=== PATIENT | female | born 1950 | race Caucasian/White ===

== ENCOUNTER 2018-07-26 16:11 | Outpatient (REF) | payer OTHER, SELFPAY ==
[2018-07-26 16:56] LABS: HCT 44.7 % (36.0-46.0); HGB 14.9 g/dL (12.0-15.5); Mean Corp. HGB Concentration 33.3 g/dL (32.0-36.0); Mean Corpuscular Hemoglobin 30.5 pg (27.0-33.0); Mean Corpuscular Volume 91.6 fL (80-95); Mean Platelet Volume 11.7 fL (8.0-11.0); Platelet Count 193 x1000/uL (130-400); RBC 4.88 m/cumm (4.00-5.20); RBC Distribution Width 13.4 % (11.7-14.6); White Blood Cell Count 6.82 k/cumm (4.4-10.8)
[2018-07-26 17:32] LABS: Anion Gap 9.6 mmol/L (3-11); BUN 19 mg/dL (7-18); CO2 27.4 mmol/L (21.0-32.0); CREATININE 0.64 mg/dL (0.55-1.02); Calcium 8.9 mg/dL (8.5-10.1); Chloride 107 mmol/L (98-107); Glucose 95 mg/dL (70-100); Potassium 4.3 mmol/L (3.5-5.1); Sodium 144 mmol/L (136-145); TSH (W/Ref FT4) 1.44 uIU/mL (0.358-3.74)
== END 2018-07-26 16:31 ==
LOC: NCHCN 16:11
PROVIDERS: PCP Family Medicine; Visit Provider Family Medicine
DX: I10 Essential (primary) hypertension (principal)
CPT/HCPCS: 80048; 85027; 84443

== ENCOUNTER 2018-08-09 10:18 | Outpatient (REF) | payer OTHER, SELFPAY ==
[2018-08-09 13:05] LABS: Anion Gap 6.8 mmol/L (3-11); BUN 17 mg/dL (7-18); CO2 29.2 mmol/L (21.0-32.0); CREATININE 0.73 mg/dL (0.55-1.02); Calcium 9.2 mg/dL (8.5-10.1); Chloride 105 mmol/L (98-107); Glucose 80 mg/dL (70-100); Potassium 4.2 mmol/L (3.5-5.1); Sodium 141 mmol/L (136-145)
== END 2018-08-09 10:38 ==
LOC: NCHCN 10:18
PROVIDERS: PCP Family Medicine; Visit Provider Family Medicine
DX: I10 Essential (primary) hypertension (principal)
CPT/HCPCS: 80048

== ENCOUNTER 2018-08-23 10:57 | Outpatient (REF) | payer OTHER, SELFPAY ==
[2018-08-23 12:33] LABS: BUN 25 mg/dL (7-18); CREATININE 0.86 mg/dL (0.55-1.02); Calcium 9.5 mg/dL (8.5-10.1); Chloride 103 mmol/L (98-107); Glucose 100 mg/dL (70-100); Sodium 143 mmol/L (136-145)
== END 2018-08-23 11:17 ==
LOC: NCHCN 10:57
PROVIDERS: PCP Family Medicine; Visit Provider Family Medicine
DX: I10 Essential (primary) hypertension (principal)
CPT/HCPCS: 80048

== ENCOUNTER 2021-05-11 10:47 | Outpatient (REF) | payer OTHER, SELFPAY ==
[2021-05-11 15:09] LABS: HCT 40.7 % (36.0-46.0); HGB 13.5 g/dL (11.2-15.7); MCH 30.3 pg (27.0-33.0); MCHC 33.2 % (32.0-36.0); MCV 91.3 fL (80-95); Platelet Count 190 10^3/uL (130-400); RBC 4.46 10^6/uL (3.93-5.22); RDW 12.6 % (11.7-14.6); RDW-SD 42.5 fL; WBC 5.19 10^3/uL (4.4-10.8)
[2021-05-11 15:35] LABS: Anion Gap 8.4 mmol/L (3-11); BUN 23 mg/dL (7-18); CO2 28.6 mmol/L (21.0-32.0); CREATININE 0.9 mg/dL (0.55-1.02); Calcium 9.3 mg/dL (8.5-10.1); Calculated LDL 173 mg/dL (<100); Chloride 103 mmol/L (98-107); Cholesterol 252 mg/dL (<200); Glucose 95 mg/dL (74-106); HDL Cholesterol 60 mg/dL (40-60); Potassium 3.7 mmol/L (3.5-5.1); Sodium 140 mmol/L (136-145); TSH (W/Ref FT4) 1.55 uIU/mL (0.36-3.74); Triglyceride 98 mg/dL (<150)
[2021-05-11 16:17] LABS: Hemoglobin A1C 5.2 % (<5.7)
[2021-05-13 11:43] LABS: Hepatitis C Ab w Rflx HCV PCR Negative (Negative)
== END 2021-05-11 10:48 | disposition home or self-care (01) ==
LOC: NCHCN 10:47
PROVIDERS: PCP Family Medicine; Visit Provider Family Medicine
DX: I10 Essential (primary) hypertension (principal); R73.9 Hyperglycemia, unspecified; R63.4 Abnormal weight loss; I89.0 Lymphedema, not elsewhere classified; Z00.00 Encounter for general adult medical examination without abnormal findings; Z79.1 Long term (current) use of non-steroidal anti-inflammatories (NSAID)
CPT/HCPCS: 80048; 80061; 85027; 86803; 83036; 84443

== ENCOUNTER 2021-06-02 12:39 | Outpatient (REF) | payer OTHER, SELFPAY ==
[2021-06-02 15:02] LABS: Calculated LDL 178 mg/dL (<100); Cholesterol 254 mg/dL (<200); HDL Cholesterol 58 mg/dL (40-60); Triglyceride 90 mg/dL (<150)
== END 2021-06-02 12:40 | disposition home or self-care (01) ==
LOC: NCHCN 12:39
PROVIDERS: PCP Family Medicine; Visit Provider Family Medicine
DX: E78.5 Hyperlipidemia, unspecified (principal)
CPT/HCPCS: 80061

== ENCOUNTER 2021-09-15 19:08 | Outpatient (REF) | payer MEDICARE, SELFPAY ==
[2021-09-15 18:01] LABS: ALT 34 U/L (14-59); Calculated LDL 62 mg/dL (<100); Cholesterol 141 mg/dL (<200); HDL Cholesterol 66 mg/dL (40-60); Triglyceride 67 mg/dL (<150)
== END 2021-09-15 19:09 | disposition home or self-care (01) ==
LOC: NCHCN 19:08
PROVIDERS: PCP Family Medicine; Visit Provider Family Medicine
DX: E78.5 Hyperlipidemia, unspecified (principal)
CPT/HCPCS: 80061; 84460

== ENCOUNTER 2022-04-20 18:44 | Outpatient (REF) | payer MEDICARE, SELFPAY ==
[2022-04-20 18:34] LABS: Anion Gap 5.6 mmol/L (3-11); BUN 21 mg/dL (7-18); CO2 30.4 mmol/L (21.0-32.0); CREATININE 0.8 mg/dL (0.55-1.02); Calcium 9.3 mg/dL (8.5-10.1); Chloride 106 mmol/L (98-107); Estimated GFR 78.24 (mL/min/1.73m2); Glucose 94 mg/dL (74-106); Sodium 142 mmol/L (136-145)
== END 2022-04-20 18:45 | disposition home or self-care (01) ==
LOC: NCHCN 18:44
PROVIDERS: PCP Family Medicine; Visit Provider Family Medicine
DX: I10 Essential (primary) hypertension (principal); Z79.1 Long term (current) use of non-steroidal anti-inflammatories (NSAID)
CPT/HCPCS: 80048